=== PATIENT | male | born 1955 | race Caucasian/White ===

== ENCOUNTER 2017-10-03 21:01 | Emergency (ER) | payer BC ==
[~2017-10-03] VITALS: Ht 165.1 cm; Wt 86.2 kg
[2017-10-03] MEDS ORDERED: LIPITOR10 MG PO (21:14)
[2017-10-03] MEDS ORDERED: TOPROL XL50 MG PO (21:14)
[2017-10-03] MEDS ORDERED: NORVASC5 MG PO (21:14)
[2017-10-03] MEDS ORDERED: PRED FORTE 1% EY5 M1 OPHTHALMIC (21:16)
[2017-10-03] MEDS ORDERED: GATIFLOXACIN2.5 ML OPHTHALMIC (21:17)
[2017-10-03] MEDS ORDERED: CLEOCIN HCL150 MG PO (22:10)
[2017-10-03 22:22] VITALS: BP 127/74
== END 2017-10-03 22:22 | disposition left against medical advice (07) ==
LOC: ER 21:01
DX: T63.091A Toxic effect of venom of other snake, accidental (unintentional), initial encounter (principal); Y92.096 Garden or yard of other non-institutional residence as the place of occurrence of the external cause; Z88.0 Allergy status to penicillin

== ENCOUNTER → 2018-04-18 | Outpatient (CLI) | payer OTHER ==
[~2018-04-18] MED LIST: CLEOCIN HCL150 MG PO; GATIFLOXACIN2.5 ML OPHTHALMIC; LIPITOR10 MG PO; NORVASC5 MG PO; PRED FORTE 1% EY5 M1 OPHTHALMIC; TOPROL XL50 MG PO
== END ==
LOC: CAT 08:20
DX: Z13.6 Encounter for screening for cardiovascular disorders (principal); E78.00 Pure hypercholesterolemia, unspecified